=== PATIENT | female | born 1980 | race Caucasian/White ===

== ENCOUNTER → 2018-01-02 | Day surgery (SDC) | payer OTHER ==
[~2018-01-02] MED LIST: ACETAMINOPHEN 1000 MG/100 ML IV ONE; BUPIVACAINE 0.5%/EPI 30 ML SDV INJ ONE; CLINDAMYCIN 600MG / 50ML 50 ML IV ONE; DEXAMETHASONE SOD PHOS INJ 4 MG/ML VIAL ONE; FENTANYL CITRATE/PF 100MCG/2 ML INJ ONE; KETOROLAC TROMETHAMINE 30 MG/ML VIAL ONE; LAMICTAL100 MG PO; LEVOFLOXACIN 500MG/D5W 100ML 100 ML IV ONE; LIDOCAINE 2%/ EPINEPHRINE 20ML MDV ONE; LIDOCAINE HCL 2% LOCAL INJ 5 ML SDV VIAL INJ ONE; LITHIUM CARBON300 M1 PO; MIDAZOLAM HCL 2 MG/2 ML VIAL ONE; ONDANSETRON HCL INJ 2 MG/ML VIAL ONE; PROPOFOL IV EMULSION 10 MG/ML 20 ML VIAL ONE; ROCURONIUM BROMIDE 10 MG/ML 5ML VIAL ONE; SEVOFLURANE INHAL SOLN 250 ML PEN BTL ONE; SUCCINYLCHOLINE 200 MG/10 ML SYR ONE; TOLTERODINE PO; TOPAMAX25 MG PO; TRAZODONE HCL100 MG PO
--- NOTE | 2018-03-03 01:09 | Operative Report ---
DATE OF PROCEDURE: January 02, 2018 PREOPERATIVE DIAGNOSIS: Refractory urge incontinence. POSTOPERATIVE DIAGNOSIS: Refractory urge incontinence. OPERATIONS PERFORMED: 1. InterStim system implantation with incision and implantation of tined quadripolar lead electrodes into the left foramen S3. 2. Fluoroscopic guidance for needle placement. 3. Subcutaneous implantation of sacral nerve neurostimulator. 4. Electronic analysis and complex programming. ANESTHESIA: Intravenous sedation with monitored anesthesia care and general anesthesia. COMPLICATIONS: None. CLINICAL SUMMARY: Maribel Sparrow is a 37-year-old woman with refractory urge incontinence. She had a successful percutaneous InterStim stimulation test as an outpatient. She is brought to the operating room for implantation. She is aware of the risks of bleeding, infection, injury to adjacent structures, need for additional procedures, and the fact that she will not be able to undergo MRI examination of her mid section. She understood all these risks and elected to proceed. OPERATIVE PROCEDURE IN DETAIL: Informed consent was verified. Maribel Sparrow was properly identified, taken to the operating room and placed on the cystoscopy table in the prone position with all pressure points carefully well padded. Patient's back was prepared and draped in usual sterile fashion. Local anesthesia used in this case with a combination of lidocaine and Marcaine with epinephrine. Needle was introduced into the left foramen S3. Depth of needle was confirmed and adjusted fluoroscopically. Proper needle position was confirmed by direct observation of the lifting of the perineum or "bellowing" and observation of plantarflexion of the great toe utilizing the stimulator box. The needle stylette was then removed, and directional guidewire was then placed and confirmed fluoroscopically. The foramen needle was then removed. An incision was made peripherally to the directional guidewire and a dilator and introducer sheath were then placed over the directional guidewire and directed into the foramen until the opaque marker of the dilator was seen correction through the sacrum. The dilator obturator was unlocked and removed and the lead was then placed through the introducer sheath to the first white line. Position was checked fluoroscopically. The lead was then further advanced until the 4 electrodes were visible anterior to the sacrum. Each electrode was tested for the same responses as above. After satisfactory position was confirmed, and under continuous fluoroscopy, the introducer sheath was retracted thus deploying the lead tines into the perisacral tissue. Further incision was then made into the subcutaneous tissues posterior to the iliac crest and a pocket was developed. We then utilized the tunneling tool and tube to bring the lead into the pocket site. The lead was then cleansed of bodily fluids thoroughly with sterile water and dried thoroughly. The lead was then inserted into the pulse generator header until the metal bands were aligned and the blue tip was clearly visible in the distal portion of the pulse generator header. The single set screw was tightened with a hex wrench. The pulse generator was then placed into the subcutaneous pocket following copious irrigation, and the programming head was then placed over the implanted neurostimulator. Impedance parameters were in acceptable levels. We then approximated both incisions in 2 layers utilizing absorbable sutures. Mastisol, Steri-Strips, and Bio-occlusive dressings were applied. Sponge, needle, and instrument counts were quoted as correct x2 at the end of the case. There were no complications to the procedure. The patient tolerated the procedure well. The patient was then transferred to the recovery room in satisfactory condition where she was programmed to the lead of optimum sensation and given explicit instructions about using the patient visual basic programmer prior to discharge. The patient will follow up in the office at which point in time will perform the impedance checks on regular intervals. Job#: [id number]
== END | disposition home or self-care (01) ==
LOC: OR 10:56
PROVIDERS: ATTEND Urology
DX: N39.46 Mixed incontinence (principal); R31.29 Other microscopic hematuria; N32.81 Overactive bladder; N81.89 Other female genital prolapse; R35.1 Nocturia; N36.41 Hypermobility of urethra; E66.01 Morbid (severe) obesity due to excess calories; F31.9 Bipolar disorder, unspecified; Z88.2 Allergy status to sulfonamides; Z88.8 Allergy status to other drugs, medicaments and biological substances; Z68.32 Body mass index [BMI] 32.0-32.9, adult; Z98.84 Bariatric surgery status; Z84.1 Family history of disorders of kidney and ureter
CPT/HCPCS: 64581; 64590; 76000; 81025; 95972; C1778; C1894; J1100; J1885; J1956; J2001 ×2; J2250; J2405; L8679

== ENCOUNTER 2019-05-17 16:35 | Emergency (ER) | payer BC, OTHER ==
[~2019-05-17] VITALS: Ht 167.6 cm; Wt 81.2 kg
[~2019-05-17 16:35] MED LIST changes: -ACETAMINOPHEN 1000 MG/100 ML IV ONE; -BUPIVACAINE 0.5%/EPI 30 ML SDV INJ ONE; -CLINDAMYCIN 600MG / 50ML 50 ML IV ONE; -DEXAMETHASONE SOD PHOS INJ 4 MG/ML VIAL ONE; -FENTANYL CITRATE/PF 100MCG/2 ML INJ ONE; -KETOROLAC TROMETHAMINE 30 MG/ML VIAL ONE; -LEVOFLOXACIN 500MG/D5W 100ML 100 ML IV ONE; -LIDOCAINE 2%/ EPINEPHRINE 20ML MDV ONE; -LIDOCAINE HCL 2% LOCAL INJ 5 ML SDV VIAL INJ ONE; -MIDAZOLAM HCL 2 MG/2 ML VIAL ONE; -ONDANSETRON HCL INJ 2 MG/ML VIAL ONE; -PROPOFOL IV EMULSION 10 MG/ML 20 ML VIAL ONE; -ROCURONIUM BROMIDE 10 MG/ML 5ML VIAL ONE; -SEVOFLURANE INHAL SOLN 250 ML PEN BTL ONE; -SUCCINYLCHOLINE 200 MG/10 ML SYR ONE
--- NOTE | 2019-05-17 17:09 | NUR ---
PATIENT WITH INTERSTIM DEVICE THAT SHE COMPLAINS IS SHOCKING HER; STATES THAT IT WAS PLACED B DR GUERRA, AND THAT SHE STOPPED USING IT APPROX 6 MONTHS AGO. PATIENT STATES THAT FOR THE LAST 5 HOURS SHE FEELS LIKE IT IS SHOCKING HER. [employer] PATIENT [facility] # [phone]
--- NOTE | 2019-05-17 23:30 | Diagnostic Imaging Report ---
PELVIS AP 1-2 VIEWS - 1 view HISTORY: Pain COMPARISON: None available. FINDINGS: Bones: No acute displaced fracture. Osseous alignment is within normal limits. Joints: The joint spaces are well-maintained. Soft tissues: Bladder stimulator device in the left pelvic soft tissues with distal lead projecting over the left pelvis. Evidence of hernia repair mesh overlying sacrum and right sacroiliac region. IMPRESSION: No acute radiographic abnormality. Signed by: Dr. Frank Moss MD on 05/17/2019 11:27 PM
--- NOTE | 2019-05-17 23:32 | Diagnostic Imaging Report ---
SACRUM COCCYX - 3 views HISTORY: Pain COMPARISON: None available. FINDINGS: Bones: No acute displaced fracture. Osseous alignment is within normal limits. Joints: The joint spaces are well-maintained. Soft tissues: Bladder stimulator device in place. Hernia repair mesh. IMPRESSION: No acute radiographic abnormality. Signed by: Dr. Frank Moss MD on 05/17/2019 11:28 PM
[2019-05-17 23:39] VITALS: BP 122/84
[2019-05-17] MEDS ORDERED: ACETAMINOPHEN/CODEINE 300MG - 30MG TAB PO ONE (23:45)
[2019-05-20] MEDS ORDERED: KETOROLAC PO (15:13)
[2019-05-20] MEDS ORDERED: ZOLPIDEM TARTRA10 MG PO (15:13)
[2019-05-20] MEDS ORDERED: WELLBUTRIN SR150 MG PO (15:13)
[2019-05-20] MEDS ORDERED: TYLENOL # 31 EA PO (15:13)
[2019-05-20] MEDS ORDERED: LATUDA40 MG PO (15:13)
[2019-05-20] MEDS ORDERED: SUMATRIPTAN SUC25 MG PO (15:13)
[2019-05-20] MEDS ORDERED: QUETIAPINE FUMA50 M1 PEG (15:13)
--- OUTSIDE RECORDS SUMMARY | 2019-05-21 12:55 | XMS REPORT ---
Author Author [facility] Address Unknown Phone Unavailable Care Team Providers Care Event Av Operator Name Role Phone Bebeto DANGELO Unavailable Unavailable Payers Payer Name Policy Type Policy Number Effective Date Expiration Date Problems This patient has no known problems. Allergies, Adverse Reactions, Alerts Allergy Name Allergy Type Status Severity Reaction(s) Onset Date Inactive Date Treating Clinician Comments Sulfa (Sulfonamide Antibiotics) DA Active NM 2017-12-03 00:00:00 ibuprofen DA Active SV 2017-12-03 00:00:00 Medications This patient has no known medications. Results Test Description Test Time Test Comments Text Results Atomic Results Result Comments SACRUM COCCYX 2019-05-17 23:27:00 [facility] [address] [place] [address] Patient Name: NOAM CASEY MR #: [id number] : 1980 Age/Sex: 39/F Req #: [id number] Adm Physician: Ordered by: CHAPARRO DANGELO MD Report #: [id number] Location: ER Room/Bed: Procedure: [id number] DX/SACRUM COCCYX Exam Date: Exam Time: REPORT STATUS: Signed SACRUM COCCYX - 3 views HISTORY: Pain COMPARISON: None available. FINDINGS: Bones: No acute displaced fracture. Osseous alignment is within normal limits. Joints: The joint spaces are well-maintained. Soft tissues: Bladder stimulator device in place. Hernia repair mesh. IMPRESSION: No acute radiographic abnormality. Signed by: Dr. Frank Reed MD on 05/17/2019 11:28 PM Dictated By: FRANK REED MD Mayi ctronically Signed By: FRANK REED MD on 05/17/192327 Transcribed By: GABE on 05/17/192327 COPY TO: CHAPARRO DANGELO MD PELVIS AP 1-2 VIEWS 2019-05-17 23:25:00 [place] [address] Patient Name: NOAM CASEY MR #: [id number] : 1980 Age/Sex: 39/F Req #: [id number] Adm Physician: Ordered by: CHAPARRO DANGELO MD Report #: [id number] Location: ER Room/Bed: Procedure: [id number] DX/PELVIS AP 1-2 VIEWS Exam Date: Exam Time: REPORT STATUS: Signed PELVIS AP 1-2 VIEWS - 1 view HISTORY: Pain COMPARISON: None available. FINDINGS: Bones: No acute displaced fracture. Osseous alignment is within normal limits. Joints: The joint spaces are well-maintained. Soft tissues: Bladder stimulator device in the left pelvic soft tissues with distal lead projecting over the left pelvis. Evidence of hernia repair mesh overlying sacrum and right sacroiliac region. IMPRESSION: No acute radiographic abnormality. Signed by: Dr. Frank Reed MD on 05/17/2019 11:27 PM Dictated By: FRANK REED MD 26 Transcribed By: GABE on 05/17/192326 COPY TO: CHAPARRO DANGELO MD ACETAMINOPHEN 2019-02-02 18:45:00 ACETAMINOPHEN (test code=ACET) < 10 mcg/mL 10-30 A RANGE OF 10-30 mcg/mL IS A THERAPEUTIC RANGE. TOXIC CONCENTRATIONS: >150 mcg/mL AT 4 HOURS AFTER INGESTION >=50 mcg/mL AT 12 HOURS AFTER INGESTION URINALYSIS [id number] 14:50:00* Test Item Value Reference Range Comments UA COLOR (test code=COLU) COLORLESS YELLOW UA APPEARANCE (test code=APPU) CLEAR CLEAR UA GLUCOSE DIPSTICK (test code=DGLUU) NEGATIVE mg/dL NEGATIVE UA BILIRUBIN DIPSTICK (test code=BILU) NEGATIVE mg/dL NEGATIVE UA KETONE DIPSTICK (test code=KETU) NEGATIVE mg/dL NEGATIVE UA SPECIFIC GRAVITY (test code=SGU) 1.006 1.001-1.035 UA BLOOD DIPSTICK (test code=MICHELE) Negative mg/dL NEGATIVE UA PH DIPSTICK (test code=ZOË) 6.0 5.0-8.0 UA PROTEIN DIPSTICK (test code=PROU) NEGATIVE mg/dL NEGATIVE UA UROBILINIOGEN DIPSTICK (test code=URO) Normal mg/dL NEGATIVE UA NITRITE DIPSTICK (test code=BETTY) NEGATIVE NEGATIVE UA LEUKOCYTE ESTERASE W REFLEX (test code=LEUUR) NEGATIVE Perla/uL NEGATIVE UA WBC (test code=WBCU) 0-5 per HPF 0-5 UA RBC (test code=RBCU) 0-3 #/HPF 0-5 UA EPITHELIAL CELLS (test code=EPIU) Few (2-5/hpf) per HPF FEW UA BACTERIA (test code=BACU) FEW #/HPF NONE Urine Source? Clean CatchDRUGS OF ABUSE SCREEN [id number] 14:50:00* Test Item Value Reference Range Comments URN COCAINE (test code=COCAURN) NEGATIVE <300 ng/mL URN CANNABINOIDS (test code=CANNABURN) NEGATIVE <50 ng/mL URN AMPHETAMINE (test code=AMPHETURN) NEGATIVE <1000 ng/mL URN BARBITURATE (test code=BARBITURN) NEGATIVE <200 ng/mL URN BENZODIAZEPINE (test code=BENZOURN) POSITIVE <200 ng/mL This test provides only a preliminary test result. A morespecific alternate chemical method must be used in order toobtain a confirmed analytical result. Gas chromatography/mass spectrometry (GC/MS) is thepreferred confirmatory method. Other chemical confirmationmethods are available. Clinical consideration and professional judgment should be applied to any drug of abusetest result, particularly when preliminary positive resultsare used.Unconfirmed screening results must not be used fornon-medical purposes (e.g., employment testing, legaltesting). URN OPIATES (test code=OPIATURN) NEGATIVE <300 ng/mL URN PHENCYCLIDINE (PCP) (test code=PHENCURN) NEGATIVE <25 ng/mL URN METHADONE (test code=METHAURN) NEGATIVE <300 ng/mL Urine Source? Clean CatchBASIC METABOLIC [id number] 14:37:00* Test Item Value Reference Range Comments SODIUM (test code=NA) 143 mmol/L 136-145 POTASSIUM (test code=K) 3.8 mmol/L 3.5-5.1 CHLORIDE (test code=CL) 113.0 mmol/L 98-107 CARBON DIOXIDE (test code=CO2) 20.0 mmol/L 21-32 ANION GAP (test code=GAP) 13.8 10-20 GLUCOSE (test code=GLU) 95 mg/dL 74-106 BLOOD UREA NITROGEN (test code=BUN) 13 mg/dL 7-18 GLOMERULAR FILTRATION RATE (test code=GFR) > 60 mL/min >=60 Estimated GFR by using Modified MDRD formula.Chronic kidney disease is defined as either kidney damageor GFR <60 mL/min/1.73 m2 for >3 months. CREATININE (test code=CREAT) 0.80 mg/dL 0.55-1.02 Note change in reference range due to change in reagent. BUN/CREATININE RATIO (test code=BUN/CREA) 15.7 10-20 CALCIUM (test code=CA) 8.9 mg/dL 8.5-10.1 HEPATIC FUNCTION [id number] 14:37:00* Test Item Value Reference Range Comments TOTAL PROTEIN (test code=PROT) 7.8 gram/dL 6.4-8.2 ALBUMIN (test code=ALB) 3.9 g/dL 3.4-5.0 GLOBULIN (test code=GLOB) 3.9 gram/dL 2.7-4.2 ALBUMIN/GLOBULIN RATIO (test code=A/G) 1.0 0.75-1.50 BILIRUBIN TOTAL (test code=BILT) 0.40 mg/dL 0.0-1.0 BILIRUBIN DIRECT (test code=BILD) 0.08 mg/dL 0.0-0.20 SGOT/AST (test code=AST) 11 IUnit/L 15-37 SGPT/ALT (test code=ALT) 22 IUnit/L 12-78 ALKALINE PHOSPHATASE TOTAL (test code=ALKP) 100 IUnit/L 45-117 Note change in reference range due to change in reagent. HCG SERUM [id number] 14:37:00* Test Item Value Reference Range Comments HCG SERUM QUAL (test code=HCGQL) NEGATIVE NEGATIVE This HCGQL test is NOT applicable for MALE patients.Check with nurse about probable order error.If Tumor Marker Test needed, nurse should order test "HCGTU"(Test #550.02644) [id number] 14:37:00* Test Item Value Reference Range Comments ACETAMINOPHEN (test code=ACET) < 10 mcg/mL 10-30 A RANGE OF 10-30 mcg/mL IS A THERAPEUTIC RANGE. TOXIC CONCENTRATIONS: >150 mcg/mL AT 4 HOURS AFTER INGESTION >=50 mcg/mL AT 12 HOURS AFTER INGESTION [id number] 14:37:00* Test Item Value Reference Range Comments SALICYLATE (test code=ANDRÉS) 3.0 mg/dL 2.8-20.0 [id number] 14:37:00* Test Item Value Reference Range Comments ALCOHOL (test code=ALC) < 3 mg/dL 0.0-3.0 INTERPRETIVE DATA NOTE: POSITIVE SCREENING RESULTS SHOULD BE CONSIDERED PRESUMPTIVE.WHEN COLLECTED FOR MEDICAL PURPOSES ONLY. SPECIMEN WILL NOTBE COLLECTED BY CHAIN OF CUSTODY.IF A CONFIRMATION OF POSITIVE RESULTS IS DESIRED, ACONFIRMATION TEST MUST BE REQUESTED BY THE PHYSICIAN AT ANADDITIONAL CHARGE TO THE PATIENT. BASIC METABOLIC [id number] 14:27:00* Test Item Value Reference Range Comments SODIUM (test code=NA) mmol/L 136-145 POTASSIUM (test code=K) mmol/L 3.5-5.1 CHLORIDE (test code=CL) mmol/L 98-107 CARBON DIOXIDE (test code=CO2) mmol/L 21-32 ANION GAP (test code=GAP) 10-20 GLUCOSE (test code=GLU) mg/dL 74-106 BLOOD UREA NITROGEN (test code=BUN) mg/dL 7-18 GLOMERULAR FILTRATION RATE (test code=GFR) mL/min >=60 CREATININE (test code=CREAT) mg/dL 0.55-1.02 BUN/CREATININE RATIO (test code=BUN/CREA) 10-20 CALCIUM (test code=CA) mg/dL 8.5-10.1 HEPATIC FUNCTION [id number] 14:27:00* Test Item Value Reference Range Comments TOTAL PROTEIN (test code=PROT) gram/dL 6.4-8.2 ALBUMIN (test code=ALB) g/dL 3.4-5.0 GLOBULIN (test code=GLOB) gram/dL 2.7-4.2 ALBUMIN/GLOBULIN RATIO (test code=A/G) 0.75-1.50 BILIRUBIN TOTAL (test code=BILT) mg/dL 0.0-1.0 BILIRUBIN DIRECT (test code=BILD) mg/dL 0.0-0.20 SGOT/AST (test code=AST) IUnit/L 15-37 SGPT/ALT (test code=ALT) IUnit/L 12-78 ALKALINE PHOSPHATASE TOTAL (test code=ALKP) IUnit/L 45-117 HCG SERUM [id number] 14:27:00* Test Item Value Reference Range Comments HCG SERUM QUAL (test code=HCGQL) NEGATIVE NEGATIVE This HCGQL test is NOT applicable for MALE patients.Check with nurse about probable order error.If Tumor Marker Test needed, nurse should order test "HCGTU"(Test #550.27030) [id number] 14:27:00* Test Item Value Reference Range Comments ACETAMINOPHEN (test code=ACET) mcg/mL 10-30 [id number] 14:27:00* Test Item Value Reference Range Comments SALICYLATE (test code=ANDRÉS) mg/dL 2.8-20.0 [id number] 14:27:00* Test Item Value Reference Range Comments ALCOHOL (test code=ALC) mg/dL 0-3 BASIC METABOLIC [id number] 14:27:00* Test Item Value Reference Range Comments SODIUM (test code=NA) 143 mmol/L 136-145 POTASSIUM (test code=K) 3.8 mmol/L 3.5-5.1 CHLORIDE (test code=CL) 113.0 mmol/L 98-107 CARBON DIOXIDE (test code=CO2) mmol/L 21-32 ANION GAP (test code=GAP) 10-20 GLUCOSE (test code=GLU) mg/dL 74-106 BLOOD UREA NITROGEN (test code=BUN) mg/dL 7-18 GLOMERULAR FILTRATION RATE (test code=GFR) mL/min >=60 CREATININE (test code=CREAT) mg/dL 0.55-1.02 BUN/CREATININE RATIO (test code=BUN/CREA) 10-20 CALCIUM (test code=CA) mg/dL 8.5-10.1 HEPATIC FUNCTION [id number] 14:27:00* Test Item Value Reference Range Comments TOTAL PROTEIN (test code=PROT) gram/dL 6.4-8.2 ALBUMIN (test code=ALB) g/dL 3.4-5.0 GLOBULIN (test code=GLOB) gram/dL 2.7-4.2 ALBUMIN/GLOBULIN RATIO (test code=A/G) 0.75-1.50 BILIRUBIN TOTAL (test code=BILT) mg/dL 0.0-1.0 BILIRUBIN DIRECT (test code=BILD) mg/dL 0.0-0.20 SGOT/AST (test code=AST) IUnit/L 15-37 SGPT/ALT (test code=ALT) IUnit/L 12-78 ALKALINE PHOSPHATASE TOTAL (test code=ALKP) IUnit/L 45-117 HCG SERUM [id number] 14:27:00* Test Item Value Reference Range Comments HCG SERUM QUAL (test code=HCGQL) NEGATIVE NEGATIVE This HCGQL test is NOT applicable for MALE patients.Check with nurse about probable order error.If Tumor Marker Test needed, nurse should order test "HCGTU"(Test #550.54948) [id number] 14:27:00* Test Item Value Reference Range Comments ACETAMINOPHEN (test code=ACET) mcg/mL 10-30 [id number] 14:27:00* Test Item Value Reference Range Comments SALICYLATE (test code=ANDRÉS) mg/dL 2.8-20.0 [id number] 14:27:00* Test Item Value Reference Range Comments ALCOHOL (test code=ALC) mg/dL 0-3 CBC W/O [id number] 14:23:00* Test Item Value Reference Range Comments WHITE BLOOD CELL (test code=WBC) 7.8 K/mm3 4.5-12.5 RED BLOOD CELL (test code=RBC) 4.51 mill/mm3 3.7-5.2 HEMOGLOBIN (test code=HGB) 12.7 gram/dL 11.5-15.5 HEMATOCRIT (test code=HCT) 39.8 % 36.0-46.0 MEAN CELL VOLUME (test code=MCV) 88.2 fL 80-98 MEAN CELL HGB (test code=MCH) 28.2 picogram 27.0-33.0 MEAN CELL HGB CONCETRATION (test code=MCHC) 31.9 gram/dL 33.0-36.0 RED CELL DISTRIBUTION WIDTH (test code=RDW) 13.2 % 11.6-16.2 PLATELET COUNT (test code=PLT) 296 K/mm3 150-450 MEAN PLATELET VOLUME (test code=MPV) 10.0 fL 6.7-11.0 URINALYSIS [id number] 14:20:00* Test Item Value Reference Range Comments UA COLOR (test code=COLU) COLORLESS YELLOW UA APPEARANCE (test code=APPU) CLEAR CLEAR UA GLUCOSE DIPSTICK (test code=DGLUU) NEGATIVE mg/dL NEGATIVE UA BILIRUBIN DIPSTICK (test code=BILU) NEGATIVE mg/dL NEGATIVE UA KETONE DIPSTICK (test code=KETU) NEGATIVE mg/dL NEGATIVE UA SPECIFIC GRAVITY (test code=SGU) 1.006 1.001-1.035 UA BLOOD DIPSTICK (test code=MICHELE) Negative mg/dL NEGATIVE UA PH DIPSTICK (test code=ZOË) 6.0 5.0-8.0 UA PROTEIN DIPSTICK (test code=PROU) NEGATIVE mg/dL NEGATIVE UA UROBILINIOGEN DIPSTICK (test code=URO) Normal mg/dL NEGATIVE UA NITRITE DIPSTICK (test code=BETTY) NEGATIVE NEGATIVE UA LEUKOCYTE ESTERASE W REFLEX (test code=LEUUR) NEGATIVE Perla/uL NEGATIVE UA WBC (test code=WBCU) 0-5 per HPF 0-5 UA RBC (test code=RBCU) 0-3 #/HPF 0-5 UA EPITHELIAL CELLS (test code=EPIU) Few (2-5/hpf) per HPF FEW UA BACTERIA (test code=BACU) FEW #/HPF NONE Urine Source? Clean CatchDRUGS OF ABUSE SCREEN [id number] 14:20:00* Test Item Value Reference Range Comments URN COCAINE (test code=COCAURN) <300 ng/mL URN CANNABINOIDS (test code=CANNABURN) <50 ng/mL URN AMPHETAMINE (test code=AMPHETURN) <1000 ng/mL URN BARBITURATE (test code=BARBITURN) <200 ng/mL URN BENZODIAZEPINE (test code=BENZOURN) <200 ng/mL URN OPIATES (test code=OPIATURN) <300 ng/mL URN PHENCYCLIDINE (PCP) (test code=PHENCURN) <25 ng/mL URN METHADONE (test code=METHAURN) <300 ng/mL Urine Source? Clean CatchCBC W/O [id number] 14:20:00* Test Item Value Reference Range Comments WHITE BLOOD CELL (test code=WBC) K/mm3 4.5-12.5 RED BLOOD CELL (test code=RBC) mill/mm3 3.7-5.2 HEMOGLOBIN (test code=HGB) 12.7 gram/dL 11.5-15.5 HEMATOCRIT (test code=HCT) 39.8 % 36.0-46.0 MEAN CELL VOLUME (test code=MCV) fL 80-98 MEAN CELL HGB (test code=MCH) picogram 27.0-33.0 MEAN CELL HGB CONCETRATION (test code=MCHC) gram/dL 33.0-36.0 RED CELL DISTRIBUTION WIDTH (test code=RDW) % 11.6-16.2 PLATELET COUNT (test code=PLT) K/mm3 150-450 MEAN PLATELET VOLUME (test code=MPV) fL 6.7-11.0 - XR CHEST 2 [id number] 20:23:00 FAX: Emanuel Marsh NP [phone] [place]: St: REG Name: NOAM SCHMIDT [facility] : [birth year] Age/S: 38/F [address] [place] [address] Unit #: [id number] Loc: [place] [address] Phys: Emanuel Marsh NP Acct: [id number] Dis Date: Status: REG ER PHONE #: [phone] Exam Date: 09/26/20182003 FAX #: [phone] Reason: Chest Pain EXAMS: CPT CODE: [id number] XR CHEST 2 V 52405 CHEST TWO VIEW HISTORY: Chest pain. Comparison made to prior chest x-ray dated 11/13/17. FINDINGS: The lungs are clear. The heart size and pulmonary vascularity are normal. Bony thorax shows no acute abnormality. IMPRESSION: No active process. SL:01 at 2022 Reported and signed by: Yoni Blanco M.D. CC: Emanuel Marsh NP Technol ogist: MALCOLM Gamez RT(R) Trnscrd Date/Time/ By: 09/26/2018 (2022) : By: Zeny Orig Print D/T: S: 09/26/2018 (2 026) PAGE 1 Signed Report CBC W/AUTO [id number] 20:01:00* Test Item Value Reference Range Comments WHITE BLOOD CELL (test code=WBC) 6.23 x10 3/uL 4.5-11.0 RED BLOOD CELL (test code=RBC) 3.92 x10 6/uL 3.54-5.02 HEMOGLOBIN (test code=HGB) 11.6 g/dL 11.0-15.0 HEMATOCRIT (test code=HCT) 35.7 % 33.0-45.0 MEAN CELL VOLUME (test code=MCV) 91.1 fL 81.0-99.0 MEAN CELL HGB (test code=MCH) 29.6 pg 27.0-33.0 MEAN CELL HGB CONCETRATION (test code=MCHC) 32.5 g/dL 33.0-37.0 RED CELL DISTRIBUTION WIDTH CV (test code=RDW) 12.6 % 11.5-14.5 RED CELL DISTRIBUTION WIDTH SD (test code=RDW-SD) 41.1 fL 37.0-54.0 PLATELET COUNT (test code=PLT) 299 x10 3/uL 150-400 MEAN PLATELET VOLUME (test code=MPV) 9.9 fL 7.0-9.0 NEUTROPHIL % (test code=NT%) 49.0 % 56.0-77.0 IMMATURE GRANULOCYTE % (test code=IG%) 0.2 % 0.0-2.0 LYMPHOCYTE % (test code=LY%) 40.4 % 14.0-32.0 MONOCYTE % (test code=MO%) 7.7 % 4.8-9.0 EOSINOPHIL % (test code=EO%) 1.9 % 0.3-3.7 BASOPHIL % (test code=BA%) 0.8 % 0.0-2.0 NUCLEATED RBC % (test code=NRBC%) 0.0 % 0-0 NEUTROPHIL # (test code=NT#) 3.05 x10 3/uL 2.0-7.6 IMMATURE GRANULOCYTE # (test code=IG#) 0.01 x10 3/uL 0.00-0.03 LYMPHOCYTE # (test code=LY#) 2.52 x10 3/uL 1.0-3.8 MONOCYTE # (test code=MO#) 0.48 x10 3/uL 0.1-0.8 EOSINOPHIL # (test code=EO#) 0.12 x10 3/uL 0.0-0.2 BASOPHIL # (test code=BA#) 0.05 x10 3/uL 0.0-0.2 NUCLEATED RBC # (test code=NRBC#) 0.00 x10 3/uL 0.0-0.1 MANUAL DIFF REQUIRED (test code=MDIFF) NO TROPONIN-I [id number] 19:49:00* Test Item Value Reference Range Comments TROPONIN-I RAPID (test code=TROPIRAP) 0.00 ng/mL 0.00-0.08 Performed by certified computer aided design operator at [facility] Negative: <=0.08 Positive: >=0.09An elevated troponin value alone is not sufficient todiagnose a myocardial infarction. Rather, the patient sclinical presentation (history, physical exam) and ECGshould be used in conjunction with troponin in thediagnostic evaluation of suspected myocardial infarction. Aserial sampling protocol is recommended to facilitate the identification of temporal changes in troponin levels characteristic of NM. CHEMISTRY 8 [id number] 19:42:00* Test Item Value Reference Range Comments ISTAT-SODIUM (test code=NAP) MMOL/L 134-147 ISTAT-POTASSIUM (test code=KP) MMOL/L 3.4-5.0 ISTAT-CHLORIDE (test code=CLP) MMOL/L 100-108 ISTAT CARBON DIOXIDE (test code=ISTAT-CO2) mmol/L 21-33 ISTAT CALCIUM IONIZED (test code=ISTAT-RACHEL) MG/DL 1.12-1.32 ISTAT-GLUCOSE (test code=GLUP) MG/DL 70-110 ISTAT-BUN (test code=BUNP) MG/DL 7-18 BEDSIDE CREATININE (test code=CREATBED) MG/DL 0.6-1.3 GLOMERULAR FILTRATION RATE POC (test code=GFRBED) 74 ML/MIN CHEMISTRY 8 [id number] 19:42:00* Test Item Value Reference Range Comments ISTAT-SODIUM (test code=NAP) 142 MMOL/L 134-147 ISTAT-POTASSIUM (test code=KP) 3.4 MMOL/L 3.4-5.0 ISTAT-CHLORIDE (test code=CLP) 106 MMOL/L 100-108 Performed by certified computer aided design operator at [facility] ISTAT CARBON DIOXIDE (test code=ISTAT-CO2) 20.0 mmol/L 21-33 ISTAT CALCIUM IONIZED (test code=ISTAT-RACHEL) 1.23 MG/DL 1.12-1.32 ISTAT-GLUCOSE (test code=GLUP) 139 MG/DL 70-110 ISTAT-BUN (test code=BUNP) 14 MG/DL 7-18 BEDSIDE CREATININE (test code=CREATBED) 0.9 MG/DL 0.6-1.3 GLOMERULAR FILTRATION RATE POC (test code=GFRBED) 74 ML/MIN
[2019-05-24] MEDS ORDERED: XANAX0.5 MG PO (09:36)
[2019-05-24] MEDS ORDERED: [UNRECOGNIZED DRUG - OTHER] (09:36)
== END 2019-05-17 23:51 | disposition home or self-care (01) ==
LOC: ER 16:35
DX: M54.5 Low back pain (principal); F31.9 Bipolar disorder, unspecified
CPT/HCPCS: 72170; 72220; 81025; 99283

== ENCOUNTER 2019-09-24 17:24 | Observation (INO) | payer BC ==
[~2019-09-24] VITALS: Ht 167.6 cm; Wt 82.6 kg
[~2019-09-24 17:24] MED LIST changes: +KETOROLAC PO; +LATUDA40 MG PO; +QUETIAPINE FUMA50 M1 PEG; +SUMATRIPTAN SUC25 MG PO; +TYLENOL # 31 EA PO; +WELLBUTRIN SR150 MG PO; +XANAX0.5 MG PO; +ZOLPIDEM TARTRA10 MG PO; +[UNRECOGNIZED DRUG - OTHER]
[2019-09-24 18:14] LABS: BASOPHILS # (AUTO) 0.1 (0.0-0.1); BASOPHILS % 0.6 % (0.0-1.0); EOSINOPHILS # (AUTO) 0.3 (0.0-0.4); EOSINOPHILS % 3.6 % (0.0-6.0); HEMATOCRIT 38.6 % (34.2-44.1); HEMOGLOBIN 12.4 g/dL (12.0-16.0); LYMPHOCYTES % 38.5 % (18.0-39.1); MEAN CORPUSCULAR HEMOGLOBIN 28.8 pg (28-32); MEAN CORPUSCULAR HGB CONC 32.1 g/dL (31-35); MEAN CORPUSCULAR VOLUME 89.8 fL (81-99); MONOCYTES # (AUTO) 0.5 (0.2-0.8); MONOCYTES % 5.9 % (4.4-11.3); NEUTROPHILS % 51.1 % (38.7-80.0); PLATELET COUNT 291 x10e3/uL (140-360); RED CELL DISTRIBUTION WIDTH 15.1 % (11.7-14.4)
[2019-09-24 18:27] LABS: ALANINE AMINOTRANSFERASE 28 IU/L (0-55); ALBUMIN 3.6 g/dL (3.5-5.0); ALBUMIN/GLOBULIN RATIO 1.2 (0.8-2.0); ALKALINE PHOSPHATASE 57 IU/L (40-150); ANION GAP 8.7 mmol/L (8-16); BLOOD UREA NITROGEN 20 mg/dL (7-26); BUN/CREATININE RATIO 26 (6-25); CARBON DIOXIDE 23 mmol/L (22-29); CHLORIDE 113 mmol/L (98-107); CREATINE KINASE 49 IU/L (29-168); CREATININE, SERUM 0.76 mg/dL (0.57-1.11); EST GLOMERULAR FILTRATION RATE > 60 ML/MIN (60-); GLUCOSE 84 mg/dL (74-118); INR 0.93; PARTIAL THROMBOPLASTIN TIME 26.2 seconds (23.8-35.5); POTASSIUM 3.7 mmol/L (3.5-5.1); SODIUM 141 mmol/L (136-145)
--- NOTE | 2019-09-24 18:36 | Diagnostic Imaging Report ---
EXAMINATION: CHEST SINGLE (PORTABLE) INDICATION: ^ERMD ORDER ^[id number] ^[id number] ^Y COMPARISON: None FINDINGS: AP view TUBES and LINES: None. LUNGS: Lungs are well inflated. There is no evidence of pneumonia or pulmonary edema. PLEURA: No pleural effusion or pneumothorax. HEART AND MEDIASTINUM: The cardiomediastinal silhouette is unremarkable. BONES AND SOFT TISSUES: No acute osseous lesion. Soft tissues are unremarkable. UPPER ABDOMEN: No free air under the diaphragm. IMPRESSION: No acute thoracic abnormality. Signed by: Dr. Frank Moss MD on 09/24/2019 6:33 PM
[2019-09-24 18:54] LABS: CLARITY,URINE SL CLOUDY (CLEAR); COLOR,URINE YELLOW (YELLOW)
[2019-09-24 18:55] LABS: BILIRUBIN,URINE NEGATIVE (NEGATIVE); KETONES,URINE NEGATIVE (NEGATIVE); LEUKOCYTE ESTERASE ,URINE NEGATIVE (NEGATIVE); NITRITE,URINE NEGATIVE (NEGATIVE); PROTEIN,URINE DIPSTICK NEGATIVE (NEGATIVE); URINE UROBILINOGEN 1 mg/dL (0.2 - 1)
[2019-09-24 18:56] LABS: PREGNANCY TEST, URINE NEGATIVE (NEGATIVE)
[2019-09-24 19:19] LABS: BACTERIA,URINE FEW /HPF; EPITHELIAL CELLS,URINE RARE /LPF; RBC,URINE 0-5 /HPF (0-5); WBC,URINE (MAN) 0-5 /HPF (0-5)
[2019-09-24] MEDS ORDERED: ASPIRIN 81 MG CHEW TAB PO ONE (19:30)
[2019-09-24] MEDS ORDERED: ONDANSETRON HCL INJ 2MG/ML 2ML 2 MG/ML VIAL IV PRN (19:30)
[2019-09-24] MEDS ORDERED: SODIUM CHLORIDE FLUSH 10 ML SYR INJ PRN (19:30)
[2019-09-24 21:12] VITALS: BP 123/83
[2019-09-24] MEDS ORDERED: SUMATRIPTAN SUCCINATE 25 MG TAB PO PRN ×2 (21:15→22:15)
[2019-09-24] MEDS ORDERED: ALPRAZOLAM 0.5 MG TAB PO PRN (21:15)
[2019-09-24] MEDS ORDERED: ACETAMINOPHEN/CODEINE 300MG - 30MG TAB PO PRN (21:15)
[2019-09-24] MEDS ORDERED: SUMATRIPTAN SU100 MG PO (21:24)
[2019-09-24] MEDS ORDERED: TOPIRAMATE50 MG PO (21:24)
[2019-09-24] MEDS ORDERED: LAMOTRIGINE 100 MG TAB PO SCH ×2 (22:00)
[2019-09-24] MEDS ORDERED: TOPIRAMATE 100 MG TAB PO SCH (22:00)
[2019-09-24] MEDS ORDERED: TRAZODONE HCL 50 MG TAB PO SCH (22:00)
[2019-09-24] MEDS ORDERED: ZOLPIDEM TARTRATE 10 MG TAB PO SCH (22:00)
[2019-09-24] MEDS ORDERED: TOPIRAMATE 25 MG TAB PO SCH (22:00)
[2019-09-24] MEDS: FAMOTIDINE 20 MG/2 ML VIAL IV SCH (23:10)
[2019-09-24 23:43] VITALS: BP 123/83
[2019-09-25] VITALS: BP 100/79
[2019-09-25 03:21] LABS: CREATINE KINASE 46 IU/L (29-168)
[2019-09-25 04:00] VITALS: BP 111/64
[2019-09-25] MEDS: NITROGLYCERIN 0.4 MG SUBL SL PRN ×2 (06:34→06:46)
[2019-09-25 06:52] LABS: CREATINE KINASE 43 IU/L (29-168)
[2019-09-25 07:16] LABS: CHOL/HDL RATIO 3.8 (3.0-3.6)
[2019-09-25 08:06] VITALS: BP 123/74
[2019-09-25] MEDS ORDERED: QUETIAPINE FUMARATE 50 MG PEG SCH (09:00)
[2019-09-25] MEDS ORDERED: BUPROPION HCL SR 150 MG TAB PO SCH (09:00)
[2019-09-25] MEDS ORDERED: ASPIRIN 81 MG ENTERIC COATED PO SCH (09:00)
[2019-09-25 09:23] VITALS: BP 123/74
[2019-09-25] MEDS: FAMOTIDINE 20 MG/2 ML VIAL IV SCH (09:56)
[2019-09-25 11:35] VITALS: BP 131/85
[2019-09-25] MEDS ORDERED: SODIUM CHLORIDE 0.9% 50ML 50 ML ONE (13:09)
[2019-09-25] MEDS ORDERED: IOPAMIDOL 370 MG/ML 200 ML INFUS..BTL INJ ONE (13:09)
--- NOTE | 2019-09-25 13:51 | Diagnostic Imaging Report ---
CT chest pulmonary embolism protocol CPT code: 24456 INDICATION: Chest pain ^R/O PE TECHNIQUE: Thin collimation axial images obtained through the level of the pulmonary arteries with additional imaging through the chest following the uneventful administration of 100 cc of low osmolar, nonionic intravenous contrast. Images reconstructed into coronal and sagittal MIPs for complete evaluation of the tortuous and overlapping pulmonary vascular structures and to reduce patient radiation dose. RADIATION DOSE: Total DLP: 568.54 mGy*cm Estimated effective dose: (DLP x 0.015 x size factor) mSv CTDIvol has been reviewed. It is below the limits set by the Radiation Protocol Committee (RPC). Dose reduction techniques used: Automated exposure control, adjustment of the mAs and/or kVp according to patient size, standardized low-dose protocol, and/or iterative reconstruction technique. COMPARISON: Chest x-ray 09/24/2019. FINDINGS: Pulmonary artery: No filling defects are appreciated within the main, left, right, lobar or visualized segmental pulmonary arteries to suggest embolism. Main pulmonary artery measures 1.9 cm in diameter. Aorta: The thoracic aorta is not aneurysmal. No evidence for dissection. Lymph nodes: No enlarged axillary, supraclavicular, mediastinal, or hilar lymph nodes. There are subcentimeter calcified subcarinal lymph nodes. Thyroid: Visualized portions are normal. Mediastinum: The heart is normal in size. No pericardial effusion. Distal esophageal del toro are mildly thickened. A hiatal hernia cannot be excluded. Lungs: Right Lung: No infiltrates. Flame shaped groundglass nodule in the anterior upper lobe measures 3 to 4 mm. Tiny calcified granulomata in the upper lobe and base of the lower lobe. Left Lung: No infiltrates or nodules. Airways: Clear. Pleura: No pleural effusions, pleural based mass, or pneumothorax. Abdomen: Postoperative changes of the stomach and proximal small bowel suggestive of Emeka-en-Y bypass. The gallbladder is absent. No mass or lymphadenopathy in the visualized portions of the upper abdomen. No bowel or gastric dilatation. Bones: No focal osseous lesions. Soft tissues: Unremarkable. IMPRESSION: 1. No evidence of pulmonary embolus or aortic dissection. 2. Healed granulomatous inflammation. No infiltrates. 3. Mild distal esophageal wall thickening may be the result of reflux. Small hiatal hernia cannot be excluded. 4. Postoperative changes of the abdomen as described above. Signed by: Dr. Sadia Strange MD on 09/25/2019 1:48 PM
--- NOTE | 2019-09-25 17:07 | Discharge Summary ---
PRIMARY CARE DOCTOR: Dr. Tatiana Woodruff. FINAL DIAGNOSIS: Noncardiac chest pain, possibly due to reflux. SECONDARY DIAGNOSES: 1. Hemochromatosis. 2. Bipolar disorder. 3. Migraine. 4. Previous with some mid like gastric bypass surgery. 5. Previous cholecystectomy. CONSULT: None. PROCEDURES/STUDIES PERFORMED: CTA of the chest. HISTORY: Per [facility]. HOSPITAL COURSE: The patient had 3 negative troponin, therefore no myocardial infarction. I highly doubt that she has cardiac ischemia given that she has no risk factors. CTA of the chest was done, which did not show any PE or dissection. However, there is mild distal esophageal wall thickening. The patient also has a nodule in her lung. I have asked her to try some PPI [id number] to see if this will help. A copy of the chest CT was forwarded to her PCP. The patient currently is back to her baseline. I have updated her PCP about this hospitalization. She will follow up with her in one week. CONDITION ON DISCHARGE: Stable. DISCHARGE MEDICATIONS: Please see medication reconciliation form. Delmisching MD MADELEINE Coulter/ELTON /[id number] MTDD
[2019-09-25] MEDS ORDERED: ZOLPIDEM TARTRATE 12.5 MG PO SCH (21:00)
[2019-09-25] MEDS ORDERED: NON-FORMULARY MEDICATION (Trazodone Hcl 200 MG) PO SCH (21:00)
[2019-09-25] MEDS ORDERED: HOME MEDICATION--PATIENTS OWN PO SCH ×2 (21:00)
== END 2019-09-25 15:34 | disposition home or self-care (01) ==
LOC: ER 17:24 → ERHOLD 19:24 → MED/SURG2 20:35
PROVIDERS: ADMIT Internal Medicine; ATTEND Internal Medicine
DX: E83.119 Hemochromatosis, unspecified (principal); F31.9 Bipolar disorder, unspecified; G43.909 Migraine, unspecified, not intractable, without status migrainosus; Z98.84 Bariatric surgery status; Z90.49 Acquired absence of other specified parts of digestive tract
CPT/HCPCS: 36415; 71045; 71260; 80053; 80061; 81001; 81025; 82550; 82553; 82948; 84484; 85025; 85610; 85730; 86850; 86900; 87086; 93005; 93306; 99284; G0378; J2405; Q9967